=== PATIENT | male | born 1955 | race Caucasian/White ===

== ENCOUNTER 2019-05-31 09:16 | Day surgery (SDC) | payer OTHER ==
--- NOTE | 2019-05-28 09:46 | HP ---
DATE OF SURGERY: 05/31/2019 ADMISSION DIAGNOSIS: Symptomatic cholelithiasis. ANTICIPATED PROCEDURE: Laparoscopic cholecystectomy. HISTORY OF PRESENT ILLNESS: The patient has upper abdominal pain with sausage and orange juice. PAST MEDICAL HISTORY: ALLERGIES: NONE. MEDICATIONS: See list. PAST SURGICAL HISTORY: Hemorrhoidectomy. SOCIAL HISTORY: Negative tobacco. Positive ETOH. FAMILY HISTORY: Negative. REVIEW OF SYSTEMS: Arthritis. Chronic obstructive pulmonary disease. Acid reflux. PHYSICAL EXAMINATION: VITAL SIGNS: Normal. CHEST: Clear. COR: Regular. LAB DATA AND TESTS: Ultrasound stones. IMPRESSION: Symptomatic cholelithiasis. PLAN: Laparoscopic cholecystectomy.
[~2019-05-31 09:16] MED LIST: Lactated Ringers 1,000 ML IV ONE; Lactated Ringers 1,000 ML IV SCH; MEFOXIN 2 GM PREMIX** 2 GM/50 ML ML IV ONE; MEFOXIN 2 GM PREMIX** 2 GM/50 ML ML IV SCH; Sensorcaine 0.25% 10 ML ONE
[2019-05-31] MEDS ORDERED: SUBLIMAZE 250 MCG/5 ML ONE (11:04)
[2019-05-31] MEDS ORDERED: Versed 2 MG/2 ML Injection ONE (11:04)
[2019-05-31] MEDS ORDERED: DIPRIVAN 200 MG/20 ML IV ONE (11:04)
[2019-05-31] MEDS ORDERED: Zemuron 100 MG/10 ML ONE (11:04)
[2019-05-31] MEDS ORDERED: Quelicin Fliptop 200 MG/10 ML ONE (12:13)
[2019-05-31] MEDS ORDERED: BRIDION 200MG/2ML IV ONE (12:50)
[2019-05-31] MEDS ORDERED: SUBLIMAZE 100 MCG/2 ML ONE (13:16)
[2019-05-31] MEDS ORDERED: Zofran 4 MG/2 ML VIAL ONE (13:37)
[2019-05-31 15:16] VITALS: BP 102/50; PULSE 70; O2SAT 95
--- NOTE | 2019-06-01 09:44 | OP ---
SURGERY DATE/TIME: 05/31/2019 1209 PREOPERATIVE DIAGNOSIS: Symptomatic cholelithiasis. POSTOPERATIVE DIAGNOSIS: Symptomatic cholelithiasis. PROCEDURE: Laparoscopic cholecystectomy. SURGEON: Dr. Millan. ANESTHESIA: General endotracheal tube. COMPLICATIONS: None. CONDITION: Stable. INDICATIONS: A patient with upper abdominal pain, ultrasound positive. Seen and examined. Procedure discussed in detail and wished to proceed. DESCRIPTION OF PROCEDURE AND FINDINGS: Taken to surgery. General anesthetic, routine prep and drape. Veress needle inserted. Opening pressure of 1, insufflating pressure 14. It was markedly contracted but despite this the infundibulum was identified. Cystic duct defined. Cystic artery defined. Both structures triply clipped and transected. Gallbladder rolled out of gallbladder fossa. The gallbladder delivered through upper abdominal port. Hole closure device was used. Field clean and dry. CO2 exsufflated. Skin closed with 4-0 Vicryl and Steri-Strips. The patient tolerated the procedure satisfactorily.
== END 2019-05-31 15:25 | disposition home or self-care (01) ==
LOC: SDC 09:16
PROVIDERS: ATTEND Surgery
DX: K80.20 Calculus of gallbladder without cholecystitis without obstruction (principal); J44.9 Chronic obstructive pulmonary disease, unspecified; M19.90 Unspecified osteoarthritis, unspecified site; K21.9 Gastro-esophageal reflux disease without esophagitis
CPT/HCPCS: 88304; J0330; J0694; J2250; J2405; J2704; J3010

== ENCOUNTER 2020-04-17 06:41 | Day surgery (SDC) | payer OTHER ==
[~2020-04-17 06:41] MED LIST changes: +DIPRIVAN 200 MG/20 ML IV ONE; -Lactated Ringers 1,000 ML IV ONE; -Lactated Ringers 1,000 ML IV SCH; -MEFOXIN 2 GM PREMIX** 2 GM/50 ML ML IV ONE; -MEFOXIN 2 GM PREMIX** 2 GM/50 ML ML IV SCH; -Sensorcaine 0.25% 10 ML ONE
[2020-04-17] MEDS ORDERED: GlucaGen 1 MG ONE (06:45)
[2020-04-17] MEDS ORDERED: Lactated Ringers 1,000 ML IV SCH (07:30)
[2020-04-17 10:35] VITALS: O2SAT 96
[2020-04-17 10:40] VITALS: BP 130/66; PULSE 81
--- NOTE | 2020-04-17 12:33 | OP ---
SURGERY DATE/TIME: 04/17/2020 0936 PREOPERATIVE DIAGNOSIS: Ten year follow up. POSTOPERATIVE DIAGNOSIS: One rectal polyp. PROCEDURE: Colonoscopy complete to cecum with hot polypectomy x1. SURGEON: Fawad Millan M.D. ANESTHESIA: MAC. COMPLICATIONS: None. CONDITION: Stable. WITHDRAWAL TIME: Six minutes. PREP SCORE: Excellent. INDICATION: A patient requiring evaluation. DESCRIPTION OF PROCEDURE: Taken to endoscopy. Left lateral decubitus position. Anal digital examination satisfactory. Scope advanced to the cecum. On circumferential withdrawal ileocecal valve, appendiceal orifice were normal. Ascending, hepatic, transverse, splenic, descending, sigmoid mild diverticulosis of the sigmoid. Upper rectum 8 mm polyp taken with hot biopsy forceps to extinction. Lower rectum satisfactory. Anus satisfactory. PLAN: Follow up in three years. He will call back or check back in the office for his path report.
== END 2020-04-17 10:38 | disposition home or self-care (01) ==
LOC: SDC 06:41
PROVIDERS: ATTEND Surgery
DX: Z12.11 Encounter for screening for malignant neoplasm of colon (principal); D12.8 Benign neoplasm of rectum; E11.9 Type 2 diabetes mellitus without complications; I10 Essential (primary) hypertension; Z79.899 Other long term (current) drug therapy
CPT/HCPCS: 88305; J1610; J2704

== ENCOUNTER 2021-06-03 05:47 | Day surgery (SDC) | payer OTHER ==
[2021-06-03] MEDS ORDERED: Lactated Ringers 1,000 ML IV SCH (06:30)
[2021-06-03] MEDS ORDERED: Xylocaine-Mpf 2% 5 Ml Vial ONE (07:58)
[2021-06-03] MEDS ORDERED: DIPRIVAN 200 MG/20 ML IV ONE (07:58)
[2021-06-03] MEDS ORDERED: Versed 2 MG/2 ML Injection ONE (08:00)
--- NOTE | 2021-06-03 08:44 | OP ---
SURGERY DATE/TIME: 06/03/2021 0805 PREOPERATIVE DIAGNOSES: 1) History of gastric ulcer disease. 2) Frequent loose stool. POSTOPERATIVE DIAGNOSIS: Normal exam. PROCEDURE: EGD. SURGEON: Grover Parker M.D. ANESTHESIA: MAC. ESTIMATED BLOOD LOSS: Minimal. SPECIMENS: There were two cold forceps biopsies taken from the duodenum and sent for celiac testing. DESCRIPTION OF PROCEDURE: After informed written consent was obtained, the patient was taken to the endoscopy suite. He was placed in left lateral decubitus position and a bite block was inserted. The anesthesia was then titrated to the desired level of consciousness. The endoscope was inserted into the posterior oropharynx and under direct visualization the esophagus was easily traversed. There was normal mucosal appearance in the esophagus. Likewise, the gastroesophageal junction had a normal mucosal appearance. Upon entering the stomach, there was a normal rugated gastric mucosa free of any lesions or defects. The gastric antrum was inspected and there were no gross abnormalities. The pylorus was traversed and the first and second portions of the duodenum showed no obvious mucosal abnormalities. Two random cold forceps biopsies were taken from the duodenum and sent for celiac testing due to the history of frequent loose stools. There was minimal blood loss. Upon withdrawal again all mucosal structures appeared within normal limits. The scope was removed. The patient was transferred to the recovery room in good condition.
[2021-06-03 09:09] VITALS: BP 141/87; PULSE 86; O2SAT 91
== END 2021-06-03 09:16 | disposition home or self-care (01) ==
LOC: SDC 05:47
PROVIDERS: ATTEND Family Medicine
DX: R19.7 Diarrhea, unspecified (principal); Z87.19 Personal history of other diseases of the digestive system; I10 Essential (primary) hypertension; Z79.899 Other long term (current) drug therapy
CPT/HCPCS: 88305; J2250; J2704

== ENCOUNTER 2022-11-18 07:53 | Day surgery (SDC) | payer MEDICARE ==
--- NOTE | 2022-10-20 14:01 | HP ---
DATE OF SURGERY: 10/21/2022 HISTORY OF PRESENT ILLNESS: The patient is a 67-year-old male presents for three year follow up of colon polyps. He denies any family history of colon cancer. Denies any GI signs or symptoms at this time. He does report sleep apnea. PAST MEDICAL HISTORY: Hypertension, gastroesophageal reflux disease, diabetes. PAST SURGICAL HISTORY: Gallbladder. Hemorrhoid. ALLERGIES: CODEINE. MEDICATIONS: Jardiance, Pepcid, methimazole, pantoprazole, Spiriva, hydrochlorothiazide, tamsulosin, losartan, verapamil, dicyclomine, albuterol, ipratropium. FAMILY HISTORY: None reported. SOCIAL HISTORY: Former smoker. REVIEW OF SYSTEMS: CONSTITUTIONAL: Denies fever or chills. CHEST: Denies shortness of breath. CVS: Denies chest pain. ABDOMEN: Denies abdominal pain. PHYSICAL EXAMINATION: GENERAL: No acute distress. CHEST: Nonlabored. No shortness of breath. CVS: Regular rate and rhythm. ABDOMEN: Soft. IMPRESSION: History of polyps. PLAN: Colonoscopy with Dr. Fawad Millan. As dictated by Yahaira Alanis NP.
--- NOTE | 2022-11-17 14:36 | HP ---
DATE OF SURGERY: 11/18/2022 HISTORY OF PRESENT ILLNESS: The patient is a 67-year-old male presents for colonoscopy. He had colonoscopy three years ago and had polyps. He denies any GI signs or symptoms at this time. He denies family history of colon cancer. He reports sleep apnea. PAST MEDICAL HISTORY: Sleep apnea, heartburn, diabetes, gastroesophageal reflux disease, benign prostatic hypertrophy. PAST SURGICAL HISTORY: Cholecystectomy. Hemorrhoid ALLERGIES: CODEINE. MEDICATIONS: Jardiance, famotidine, methimazole, pantoprazole, Spiriva, tamsulosin, losartan, verapamil, dicyclomine, albuterol, ipratropium, Albuterol. FAMILY HISTORY: None reported. SOCIAL HISTORY: Former smoker. Denies alcohol. REVIEW OF SYSTEMS: CONSTITUTIONAL: Denies fever or chills. CHEST: Denies shortness of breath. CVS: Denies chest pain. ABDOMEN: Denies abdominal pain. PHYSICAL EXAMINATION: GENERAL: No acute distress. CHEST: Nonlabored. No shortness of breath. CVS: Regular rate and rhythm. ABDOMEN: Soft. IMPRESSION: History of polyps. PLAN: Colonoscopy with Dr. Fawad Millan. As dictated by Yahaira Alanis NP.
[2022-11-18] MEDS ORDERED: Lactated Ringers 1,000 ML IV SCH (08:30)
[2022-11-18] MEDS ORDERED: Lactated Ringers 1,000 ML IV ONE (08:37)
[2022-11-18] MEDS ORDERED: Versed 2 MG/2 ML Injection ONE (09:27)
[2022-11-18] MEDS ORDERED: DIPRIVAN 200 MG/20 ML IV ONE (09:27)
[2022-11-18] MEDS ORDERED: SUBLIMAZE 100 MCG/2 ML ONE (09:29)
[2022-11-18 10:27] VITALS: BP 124/79; PULSE 82; O2SAT 92
--- NOTE | 2022-11-18 13:12 | OP ---
SURGERY DATE/TIME: 11/18/2022 0926 PREOPERATIVE DIAGNOSIS: Three year follow up of polyps. POSTOPERATIVE DIAGNOSIS: Three polyps, two - 5 mm and a 3 mm. PROCEDURES: 1) Colonoscopy complete exam to cecum. 2) Hot polypectomy biopsy x3. SURGEON: Fawad Millan M.D. ANESTHESIA: MAC. COMPLICATIONS: None. CONDITION: Stable. DESCRIPTION OF PROCEDURE: The patient taken to endoscopy. Left lateral decubitus position. Scope introduced. Scope gradually advanced to the cecum. Base of the cecum, ileocecal valve, appendiceal orifice are normal. Three polyps were taken. All of these were about 5 mm. They were submitted in one jar. There was mild pancolonic diverticulosis. The scope is advanced from the cecum. Ileocecal valve, appendiceal orifice back down to the rectum, rectal/anal satisfactory. The patient tolerated the procedure satisfactorily. Follow up in five years. Prep score excellent.
== END 2022-11-18 10:31 | disposition home or self-care (01) ==
LOC: SDC 07:53
PROVIDERS: ATTEND Surgery
DX: Z09 Encounter for follow-up examination after completed treatment for conditions other than malignant neoplasm (principal); Z86.010 Personal history of colon polyps; D12.2 Benign neoplasm of ascending colon; D12.0 Benign neoplasm of cecum; D12.5 Benign neoplasm of sigmoid colon; E11.9 Type 2 diabetes mellitus without complications; K57.30 Diverticulosis of large intestine without perforation or abscess without bleeding
CPT/HCPCS: 82947; J2250; J2704; J3010